=== PATIENT | female | born 1995 | race Caucasian/White ===

== ENCOUNTER 2022-08-16 10:45 | Day surgery (SDC) | payer OTHER, SELFPAY ==
[2022-07-31 13:01] VITALS: BMI 24.2
[2022-08-16] VITALS (8 sets, daily range): BP systolic 109–129; BP diastolic 68–88; PULSE 67–93; RESP 14–20; TEMP 36.3–37.4; O2SAT 98–100
--- NOTE | 2022-08-16 06:52 | WPDANESEPPF ---
Anes - Initial Pre Proc Eval Procedure: Operation Date: 08/16/22 12:30 Proposed Procedures p Bilateral Breast Augmentation Mammoplasty - Godfrey Dewey MD Date/Time: 08/16/22 06:52 Surgeon: Godfrey Dewey MD Pre Op Diagnosis: Micromastia Patient Data Age: 26 Gender: F Height: 1.64 m Weight: 65 kg Allergies Allergy/AdvReac Type Severity Reaction Status Date / Time No Known Allergies Allergy Verified 08/16/22 11:06 Home Medications Medication Instructions Recorded Confirmed Type fluoxetine 10 mg capsule (Prozac) 10 mg PO DAILY 07/31/22 08/16/22 History lisdexamfetamine 60 mg capsule 60 mg PO DAILY 07/31/22 08/16/22 History (Vyvanse) norgestimate 0.25 mg-ethinyl 1 tablet PO DAILY 07/31/22 08/16/22 History estradiol 35 mcg tablet (Sprintec (28)) Patient hx anesthesia problems: none Family hx anesthesia problems: none Results Review: All pre-operative results and documents have been reviewed as part of the pre-operative evaluation. COUNTS INCLUDE 234 BEDS AT THE [facility] Past Medical History Medical History (Updated 08/16/22 @ 06:52 by Josse Jha DO) Depression Social History Social History Smoking status: Never smoker Alcohol intake: current Alcohol use details: rarely Substance use: never Substance use type: does not use Living arrangements: with family Spiritual care concerns: No Anes - Eval Final PreProcedure Day of Procedure 08/16/22 06:52 Patient weight: normal Heart: regular rate and rhythm Lungs: clear to auscultation Airway: Mallampati scale class II Neurological: alert and oriented Last oral intake: >/= 8 hours ASA classification: II Emergent: no Anesthetic plan: proceed Anesthesia type and monitoring: general LMA and standard monitoring Results Review: All pre-operative results and documents have been reviewed as part of the pre-operative evaluation. Informed Consent: The patient's anesthetic plan and its attendant risks and benefits were discussed with the patient/family/POA. Questions were solicited and answers provided to the satisfaction of the patient/family/POA.
[2022-08-16] MEDS: SCOPOLAMINE 1.5 MG PATCH TRANSDERM (11:20)
[2022-08-16] MEDS: LACTATED RINGERS 1,000 ML 30 ML IV CONT ×2 (11:21→14:28)
--- NOTE | 2022-08-16 11:43 | WPDHPUPDATE1 ---
History and Physical Update Update Date/Time: 08/16/22 11:43 History and Physical has been reviewed, including an updated exam of the patient. There are NO changes in the patient's condition. Risks, benefits, and alternatives have been discussed and questions answered. Patient agrees to proceed with procedure.
--- NOTE | 2022-08-16 11:44 | P.OP_ITS ---
Procedure Note - Detailed Date of Procedure 08/16/22 Pre-op Diagnosis Micromastia Post-op Diagnosis Same Procedure Performed Bilateral augmentation mammaplasty Surgeon Godfrey Dewey MD Anesthesia General Findings Bilateral Marylu Macedo Softtouch 405CC Right - REF# [id number] SN [id number] Dual Plane 1.5 Left - REF# [id number] SN [id number] Dual Plane 3 Description of Procedure She is here today for bilateral breast augmentation. Previously and again today the risks, benefits, alternatives were discussed in extensive detail. I wanted her to be very realistic about the risks involved as well as expectations. We discussed aftercare and what to monitor for. Made sure answered all of her questions to her satisfaction today and consent was obtained. Marked in the preoperative holding area with their verification. The patient was taken to the operating room placed supine on the operating table. Anesthesia was provided by anesthesiology. A surgical time-out was taken. We cleansed the skin and 1% lidocaine and 0.25% Marcaine with epinephrine was used anesthetize as a field block. She was prepped and draped in a standard sterile fashion. Tegaderm nipple Morgan were placed. A 15 blade used to make an incision along the inframammary fold. Dissection was continued at 45 degree angle until the chest wall as identified. I incised the pectoralis major along its inferior border and completely released the inferior border leaving the medial border intact. I created a subpectoral pocket in the appropriate dimensions based on our preoperative planning for the implant. I then copiously irrigated with saline solution and verified a strict hemost asis. Next the use a triple antibiotic and Betadine containing solution to irrigate the pocket. I washed my gloves with the triple antibiotic and Betadine solution. We washed the implant immediately upon opening it with this solution and only opened it when we needed it. I used implant funnel and no-touch technique. The implant was introduced into the pocket using the funnel. Having verified positioning of the implant this was closed using 2-0 Vicryl followed by 3-0 Monocryl in a running subcuticular 4-0 Monocryl followed by tissue glue. Fluffs and surgical bra were placed. Patient was awoke and taken to PACU without difficulty. All instrument sponge counts were correct at the end of the case. Estimated Blood Loss 25 Drains No Packing No Pathology None sent Complications No immediate complications Condition Stable Disposition PACU
[2022-08-16] MEDS: ceFAZolin SODIUM 2 GM/20 ML SW SYRINGE IV PUSH (12:55)
[2022-08-16] MEDS: TRANEXAMIC ACID 1,000 MG/10 ML AMPUL 1000 MG IV PUSH (12:55)
[2022-08-16] MEDS: NACL 0.9% IRRIG POUR BOTTLE 900 ML, GENTAMICIN SULFATE INJ 160 MG, ceFAZolin 2 GM, POVI... IRRIGATION (13:28)
[2022-08-16] MEDS: fentaNYL CITRATE INJ (*CRX) 100 MCG/2 ML VIAL 25 MCG IV PUSH ×5 (14:07→14:28)
--- NOTE | 2022-08-16 14:31 | SUR.PHASEI ---
PT AWAKE AND RESTING QUIETLY. READY TO SEE FAMILY.
[2022-08-16] MEDS: oxyCODONE HCL (*CRX) 5 MG TAB IR PO (14:51)
--- NOTE | 2022-08-16 15:34 | WPDANESPN ---
Anes - Prog Note Post-Op Date/Time: 08/16/22 15:34 Cardiovascular status: normal Respiratory status: normal Airway patency: baseline Mental status: baseline Post-Op hydration status: normal Vital Signs: Last Vital Signs Temp 36.3 C L 08/16/22 13:55 Pulse 79 08/16/22 15:26 Resp 16 08/16/22 15:26 BP 121/78 08/16/22 15:26 Pulse Ox 99 08/16/22 15:26 O2 Del Method Room Air 08/16/22 15:26 O2 Flow Rate 6 08/16/22 14:10 Pain Score (VAS): 0 I/O: Intake & Output 08/15/22 08/16/22 08/16/22 23:59 07:59 15:59 Intake Total 200 Balance 200 Post-procedural complaints: none Patient Feedback: Patient satisfied with anesthetic care.
== END 2022-08-16 15:30 | disposition home or self-care (01) ==
PROVIDERS: Visit Provider Surgery Plastic and Reconstructive Surgery
PROC: (CPT 19325; principal; 2022-08-16 12:30)
DX: N64.82 Hypoplasia of breast (principal)
CPT/HCPCS: 19325